=== PATIENT | female | born 1955 | race Caucasian/White ===

== ENCOUNTER → 2019-11-22 | Outpatient (CLI) | payer OTHER | LOC: CAT 13:57 | DX: Z13.6 Encounter for screening for cardiovascular disorders (principal); E78.00 Pure hypercholesterolemia, unspecified; I25.10 Atherosclerotic heart disease of native coronary artery without angina pectoris ==

== ENCOUNTER → 2020-12-19 | Outpatient (CLI) | payer BC, OTHER | LOC: SJCVCIMAG 12-04 08:41 | PROVIDERS: ATTEND Internal Medicine Cardiovascular Disease | DX: I08.1 Rheumatic disorders of both mitral and tricuspid valves (principal); I10 Essential (primary) hypertension ==

== ENCOUNTER → 2021-06-11 | Outpatient (CLI) | payer OTHER, BC ==
[~2021-06-11] MED LIST: ASA81BEC PO; BENADRYL25 MG PO; BENICAR40 MG PO; NEXLIZET 180-11 EACH PO; NITROSTAT0.4 M1 PO; ZOLOFT50 M1 PO
== END ==
LOC: SJCVC 12:58
PROVIDERS: ATTEND Internal Medicine Cardiovascular Disease
DX: R94.39 Abnormal result of other cardiovascular function study (principal); E78.5 Hyperlipidemia, unspecified; R93.1 Abnormal findings on diagnostic imaging of heart and coronary circulation; I10 Essential (primary) hypertension; R06.00 Dyspnea, unspecified; R07.9 Chest pain, unspecified; Z82.49 Family history of ischemic heart disease and other diseases of the circulatory system; Z86.16 Personal history of COVID-19; Z79.82 Long term (current) use of aspirin; Z88.2 Allergy status to sulfonamides; Z88.1 Allergy status to other antibiotic agents

== ENCOUNTER → 2021-06-12 | Outpatient (CLI) | payer OTHER, BC ==
[~2021-06-12] VITALS: Ht 170.2 cm; Wt 97.0 kg
[2021-06-12 07:17] VITALS: BP 137/65
--- NOTE | 2021-06-12 18:55 | CATHLAB ---
[facility] [place] [address] INVASIVE PROCEDURE REPORT Name: HUMERA OSCAR Room #: REG YAEL GarciaGalaNancyGala#: [id number] Admission: 06/12/21 Attend Phys: Waldemar Booth MD, Discharge: Date of : 57 Report #: [id number] THIS REPORT FOR: cc: lAl Molina MD, David R. MD Mancuso, Gerald M. MD [facility] ~ APPROVED REPORT Study performed: 06/12/2021 07:41:31 Patient Details Patient Status: Out-Patient Room #: The patient is a 66 year-old female Event Personnel Waldemar Booth Research Scholar, Marry Ag RN RN, Elvira Dong RTR, Bryson Haney Ja'net RTR Monitor Procedures Performed Left Heart Cath w/or w/o Coronaries [id number] [facility] Aortogram Abdominal Peripheral Angio [id number] Art Access - R femoral artery* 10192 Initial Mod Sed Same Phys/QHP Gr5y [id number] Indication Chest pain Procedure Narrative The Right Groin^ was infiltrated with 1% Lidocaine subcutaneous anesthesia. A PINNACLE 6FR Sheath #[id number] sheath was inserted into the RFA^. Coronary angiography was performed using coronary diagnostic catheters. The right coronary system was accessed and visualized with a JR4 catheter. The left coronary system was accessed and visualized with a JL4 catheter. The left ventricle was accessed and visualized with a PIGTAIL catheter. An aortogram of the abdominal aorta was performed. Closure device was deployed with a Fr MYNX CONTROL 6F/7F L#[id number]. The patient tolerated the procedure well and there were no complications associated with the procedure. There was no hematoma. Intraoperative Conscious Sedation Sedation start time: 8:39 Case end Time: 9:04 Fentanyl 50 mcg Versed 1 mg [facility] [place] [address] INVASIVE PROCEDURE REPORT Name: HUMERA OSCAR Room #: [facility]#: [id number] Admission: 06/12/21 Attend Phys: Waldemar Booth, Discharge: Date of : 57 Report #: [id number] Fluoro Time: 2.00 minutes Dose: DAP 5149.60 cGycm2 611 mGy Contrast Type and Amount: Omnipaque 100 ml Hemodynamics The aortic pressure is 136/60 mmHg with a mean of 88 mmHg. The left ventricular pressure is 137/10 mmHg with a mean of mmHg. The left ventricular end diastolic pressure is 25 mmHg. Conclusion #1 Normal left ventricular size and systolic function EF 60%. #2 abdominal aortogram reveals an intact abdominal aorta no significant aneurysm. Brisk flow into renal arteries and iliac system. #3 Long left main with a 30% ostial lesion otherwise widely patent giving rise to LAD and circumflex. #4 the LAD stops short of the apex. There is mild irregularity mild proximal calcification. No occlusive disease. 30 to 40% ostial diagonal lesion is noted off the proximal LAD. Not flow-limiting. #5 circumflex OM is nondominant with mild irregularity. #6 large dominant right coronary artery widely patent. Recommendations and plan: Continue aggressive risk factor modification no indication for coronary intervention. <ELECTRONICALLY SIGNED> By: Waldemar Booth MD, FACC 06/12/211854 54 54 Waldemar Booth MD, FACC /INF
== END | disposition home or self-care (01) ==
LOC: CATH 06:30
PROVIDERS: ATTEND Internal Medicine Cardiovascular Disease
DX: R07.9 Chest pain, unspecified (principal); I25.10 Atherosclerotic heart disease of native coronary artery without angina pectoris; I10 Essential (primary) hypertension; E78.5 Hyperlipidemia, unspecified; Z98.890 Other specified postprocedural states; Z79.899 Other long term (current) drug therapy; Z90.710 Acquired absence of both cervix and uterus; Z82.49 Family history of ischemic heart disease and other diseases of the circulatory system; Z79.82 Long term (current) use of aspirin

== ENCOUNTER → 2021-08-15 | Outpatient (CLI) | payer OTHER, BC | LOC: SJCVC 13:42 | PROVIDERS: ATTEND Internal Medicine Cardiovascular Disease | DX: R94.31 Abnormal electrocardiogram [ECG] [EKG] (principal); R00.1 Bradycardia, unspecified; I25.10 Atherosclerotic heart disease of native coronary artery without angina pectoris; R93.1 Abnormal findings on diagnostic imaging of heart and coronary circulation; E78.5 Hyperlipidemia, unspecified; Z86.718 Personal history of other venous thrombosis and embolism; Z82.49 Family history of ischemic heart disease and other diseases of the circulatory system; Z88.8 Allergy status to other drugs, medicaments and biological substances; Z79.82 Long term (current) use of aspirin; Z79.899 Other long term (current) drug therapy ==